=== PATIENT | male | born 2000 | race Caucasian/White ===

== ENCOUNTER 2022-10-29 05:16 | Emergency (ER) | payer OTHER ==
[2022-10-29 05:35] VITALS: TEMP 98
[2022-10-29 05:50] LABS: Basophils % (A) 0 %; Eosinophils % (A) 0 %; HCT 47.6 % (39.0-53.0); HGB 16.9 gm/dL (13.0-17.5); Lymphocytes # (A) 2.2 k/uL (1.0-4.8); Lymphocytes % (A) 18 %; MCH 29.4 pg (25.0-35.0); MCHC 35.4 g/dL (31.0-37.0); MCV 82.9 fL (80.0-100.0); Mean Platelet Volume 7.7; Monocytes # (A) 0.4 k/uL (0-1.0); Monocytes % (A) 4 %; Neutrophils # (A) 9.3 k/uL (1.3-7.7); Neutrophils % (A) 77 %; Platelet Count 356 k/uL (150-450); RBC 5.74 m/uL (4.30-5.90); WBC 12.1 k/uL (3.8-10.6)
[2022-10-29] MEDS: SODIUM CHLORIDE 0.9% 1,000 ML IV ONE (06:01)
[2022-10-29] MEDS: PANTOPRAZOLE 40 MG/10 ML VIAL IVP STA (06:01)
[2022-10-29] MEDS: diphenhydrAMINE 50 MG/ML 1 ML VIAL IVP STA (06:01)
[2022-10-29] MEDS: ONDANSETRON 4 MG/2 ML VIAL IVP STA ×2 (06:01→10:46)
[2022-10-29 06:03] LABS: INR 1.1 (<1.2); Partial Thromboplastin Time 23.6 sec (22.0-30.0); Prothrombin Time 11.4 sec (9.0-12.0)
[2022-10-29 06:06] LABS: ALT 33 U/L (4-49); AST 32 U/L (17-59); African American GFR (CKD) >90 (>60 ml/min/1.73 sqM); Albumin 5.1 g/dL (3.5-5.0); Alkaline Phosphatase 107 U/L (38-126); Anion Gap 13 mmol/L; Blood Urea Nitrogen 19 mg/dL (9-20); Calcium 10.8 mg/dL (8.4-10.2); Carbon Dioxide 30 mmol/L (22-30); Chloride 99 mmol/L (98-107); Glucose 129 mg/dL (74-99); Magnesium 2.3 mg/dL (1.6-2.3); Non-African American GFR(CKD) >90 (>60 ml/min/1.73 sqM); Potassium 3.7 mmol/L (3.5-5.1); Sodium 142 mmol/L (137-145); Total Protein 9.5 g/dL (6.3-8.2)
--- NOTE | 2022-10-29 06:16 | ED ---
Nausea/Vomiting/Diarrhea HPI - General Chief complaint: Nausea/Vomiting/Diarrhea Stated complaint: vomiting Time Seen by Provider: 10/29/22 05:21 Source: patient, EMS, RN notes reviewed Mode of arrival: EMS Limitations: no limitations - History of Present Illness Initial comments: This is a 22-year-old male who presents to the emergency department for ab dominal pain, nausea, and vomiting. Patient states that earlier today, he was vomiting bile. He then started to vomit progressively large amounts of blood. Denies any history of similar symptoms in the past. He reports associated epigastric pain and constipation, with his last bowel movement being 4 days ago. Denies any blood in the stool. He is at [facility] for fentanyl use and has been there for 4 days at this point. Denies any fevers, chills, sore throat, cough, dyspnea, chest pain, palpitations, diarrhea, back pain, or headaches. MD complaint: nausea, vomiting Description of Vomiting: bilious, bloody Associated Abdominal Pain: Yes Location: epigastric - Related Data Home Medications Medication Instructions Recorded Confirmed Acetaminophen Tab [Tylenol] 650 mg PO QID PRN 10/29/22 10/29/22 Calcium Carb/Mag Ox/Zinc Sulf 1 tab PO TID 10/29/22 10/29/22 [Hrm-Wrp-Tnrm 334-134-5 mg Tab] Chlorpheniramine Maleate 4 mg PO Q4H PRN MDD 4 doses 10/29/22 10/29/22 [Chlor-Trimeton] Escitalopram [Lexapro] 10 mg PO DAILY@0600 10/29/22 10/29/22 Hyoscyamine Sulfate [Levsin] 0.125 mg PO QID PRN 10/29/22 10/29/22 Ibuprofen [Motrin Ib] 600 mg PO Q6H PRN 10/29/22 10/29/22 Loperamide HCl [Imodium A-D] 2 - 4 mg PO QID PRN 10/29/22 10/29/22 Mirtazapine [Remeron] 15 mg PO HS@2130 10/29/22 10/29/22 Multivitamins, Thera [Multivitamin 1 tab PO DAILY 10/29/22 10/29/22 (formulary)] Mylanta 30 ml PO Q4H PRN 10/29/22 10/29/22 Thiamine [Vitamin B-1] 100 mg PO DAILY 10/29/22 10/29/22 buprenorphine HCL [Subutex] See Taper SUBLINGUAL DAILY 10/29/22 10/29/22 cloNIDine HCL [Catapres] 0.1 mg PO DIRECTED PRN 10/29/22 10/29/22 Allergies Allergy/AdvReac Type Severity Reaction Status Date / Time No Known Allergies Allergy Verified 10/29/22 08:24 Review of Systems ROS Statement: Those systems with pertinent positive or pertinent negative responses have been documented in the HPI. ROS Other: All systems not noted in ROS Statement are negative. General Exam Limitations: no limitations General appearance: alert, in no apparent distress Head exam: Present: atraumatic, normocephalic, normal inspection Respiratory exam: Present: normal lung sounds bilaterally. Absent: respiratory distress, wheezes, rales, rhonchi, stridor Cardiovascular Exam: Present: regular rate, normal rhythm, normal heart sounds. Absent: systolic murmur, diastolic murmur, rubs, gallop, clicks GI/Abdominal exam: Present: soft, tenderness (epigastric), normal bowel sounds. Absent: distended Neurological exam: Present: alert, oriented X3, CN II-XII intact Psychiatric exam: Present: normal affect, normal mood Skin exam: Present: warm, dry, intact, normal color. Absent: rash Course Vital Signs 10/29/22 10/29/22 10/29/22 05:32 07:00 08:44 Temperature 98 F 98 F Pulse Rate 87 84 86 Respiratory 16 16 16 Rate Blood Pressure 131/85 164/80 145/68 O2 Sat by Pulse 97 98 98 Oximetry 10/29/22 10/29/22 10/29/22 10:46 12:06 12:51 Temperature Pulse Rate 110 H 89 97 Respiratory 20 20 18 Rate Blood Pressure 100/64 100/60 100/67 O2 Sat by Pulse 99 98 98 Oximetry Medical Decision Making - Medical Decision Making This is a 22-year-old male who presents to the emergency department for abdominal pain, nausea, and vomiting. Was pt. sent in by a medical professional or institution? @ -[facility] Did you speak to anyone other than the patient for history? @ -No Did you review nursing and triage notes? @ -Yes, and I agree, it is accurate with regards to the patient's symptoms. Were old charts reviewed? @ -No Differential Diagnosis? @ -Differential Abdominal Pain Men: Appendicitis, cholecystitis, diverticulosis, ischemic bowel, pancreatitis, hepatitis, UTI, gastroenteritis, AAA, incarcerated hernia, bowel obstruction, constipation, inflammatory bowel, hepatitis, peptic ulcer disease, splenic infarction, perforated viscus, testicular torsion, this is not meant to be an all-inclusive list. CT interpreted by me (1pt min.)? @ -Computed tomography scan of the chest, abdomen, and pelvis obtained following the GI bleed protocol. My interpretation identifies no evidence of bowel wall thickening. What testing was considered but not performed? (CT, X-rays, U/S, labs)? Why? @ -None What meds were considered but not given? Why? @ -None Did you discuss the management of the patient with other professionals? @ -I initially spoke with [facility]. Their GI department declined the transfer because the patient had a stable hemoglobin level. I then spoke with Dr. Grayson, general surgery, who advised transfer to a facility with GI available. Dr. Ching Hays at [facility] who accepts the patient for ER to ER transfer. Did you reconcile home meds? @ -No Was smoking cessation discussed for >3mins.? @ -No Was critical care preformed (if so, how long)? @ -No Were there social determinants of health that impacted care today? How? (Home lessness, low income, unemployed, alcoholism, drug addiction, transportation, low edu. Level, literacy, decrease access to med. care, [facility], rehab)? @ -Fentanyl abuse, increasing his risk for serious health problems. Was there de-escalation of care discussed even if they declined? (Discuss DNR or withdrawal of care, Hospice)? @ -No What co-morbidities impacted this encounter? (DM, HTN, Smoking, COPD, CAD, Cancer, CVA, Hep., AIDS, mental health diagnosis, sleep apnea, morbid obesity)? @ -Fentanyl abuse Was patient admitted / discharged? @ -Transferred. Lab work obtained revealing leukocytosis and no other actionable findings. Initial hemoglobin 16.9. Patient had a bag containing hematemesis in the examination room. This appeared bright red in nature and c ontained approximately one unit of blood. Patient noted vomiting a significant amount of blood before this as well. He was given IV fluids, Protonix, Zofran, and Benadryl. He did initially have improvement in symptoms following medication administration and no longer threw up. However shortly afterwards, he did start to have an increase in nausea again and was subsequently given a dose of Reglan. His nausea again improved, but returned again within an hour. We did repeat his CBC and his hemoglobin went from 16.9 to 14.9. He did however get a liter of fluids and a component of this was likely related to dilution. Computed tomography scan of the chest, abdomen, and pelvis obtained following GI bleed protocol. No acute irregularities were noted. Given that we do not have GI available and because his nausea has been very difficult to control, there is concern about discharging him home and having the hematemesis return and worsening the possible [place] tear. I initially spoke with [facility], who's GI department declined the transfer because the patient had a stable hemoglobin level. I then spoke with Dr. Grayson, general surgery, who advised transfer to a facility with GI available. Patient accepted as an ED to ED transfer at [facility]. Dr. Ching Hays is the accepting ED physician. Undiagnosed new problem with uncertain prognosis? @ -None Drug Therapy requiring intensive monitoring for toxicity (Heparin, Nitro, Insulin, Cardizem)? @ -None Were any procedures done? @ -None Diagnosis/symptom? @ -Hematemesis Acute, or Chronic, or Acute on Chronic? @ -Acute Uncomplicated (without systemic symptoms) or Complicated (systemic symptoms)? @ -Complicated Side effects of treatment? @ -None Exacerbation, Progression, or Severe Exacerbation] @ -Not applicable Poses a threat to life or bodily function? @ -Yes This case was discussed in detail with the attending ED physician, Dr. Pizarro. Presentation, findings, and treatment plan discussed in detail as well. - Lab Data Result diagrams: 10/29/22 08:44 10/29/22 05:40 Lab Results 10/29/22 10/29/22 10/29/22 Range/Units 05:40 05:40 05:40 WBC 12.1 H (3.8-10.6) k/uL RBC 5.74 (4.30-5.90) m/uL Hgb 16.9 (13.0-17.5) gm/dL Hct 47.6 (39.0-53.0) % MCV 82.9 (80.0-100.0) fL MCH 29.4 (25.0-35.0) pg MCHC 35.4 (31.0-37.0) g/dL RDW 13.0 (11.5-15.5) % Plt Count 356 (150-450) k/uL MPV 7.7 Neutrophils % 77 % Lymphocytes % 18 % Monocytes % 4 % Eosinophils % 0 % Basophils % 0 % Neutrophils # 9.3 H (1.3-7.7) k/uL Lymphocytes # 2.2 (1.0-4.8) k/uL Monocytes # 0.4 (0-1.0) k/uL Eosinophils # 0.0 (0-0.7) k/uL Basophils # 0.0 (0-0.2) k/uL PT 11.4 (9.0-12.0) sec INR 1.1 (<1.2) APTT 23.6 (22.0-30.0) sec Sodium 142 (137-145) mmol/L Potassium 3.7 (3.5-5.1) mmol/L Chloride 99 (98-107) mmol/L Carbon Dioxide 30 (22-30) mmol/L Anion Gap 13 mmol/L BUN 19 (9-20) mg/dL Creatinine 1.11 (0.66-1.25) mg/dL Est GFR (CKD-EPI)AfAm >90 (>60 ml/min/1.73 sqM) Est GFR (CKD-EPI)NonAf >90 (>60 ml/min/1.73 sqM) Glucose 129 H (74-99) mg/dL Lactic Ac Sepsis Rflx Plasma Lactic Acid Zhang (0.7-2.0) mmol/L Calcium 10.8 H (8.4-10.2) mg/dL Magnesium 2.3 (1.6-2.3) mg/dL Total Bilirubin 1.0 (0.2-1.3) mg/dL AST 32 (17-59) U/L ALT 33 (4-49) U/L Alkaline Phosphatase 107 (38-126) U/L Total Protein 9.5 H (6.3-8.2) g/dL Albumin 5.1 H (3.5-5.0) g/dL 10/29/22 10/29/22 10/29/22 Range/Units 05:40 07:21 08:44 WBC 11.0 H (3.8-10.6) k/uL RBC 5.10 (4.30-5.90) m/uL Hgb 14.9 (13.0-17.5) gm/dL Hct 43.0 (39.0-53.0) % MCV 84.2 (80.0-100.0) fL MCH 29.3 (25.0-35.0) pg MCHC 34.8 (31.0-37.0) g/dL RDW 12.7 (11.5-15.5) % Plt Count 289 (150-450) k/uL MPV 7.4 Neutrophils % 75 % Lymphocytes % 20 % Monocytes % 4 % Eosinophils % 1 % Basophils % 0 % Neutrophils # 8.2 H (1.3-7.7) k/uL Lymphocytes # 2.2 (1.0-4.8) k/uL Monocytes # 0.4 (0-1.0) k/uL Eosinophils # 0.1 (0-0.7) k/uL Basophils # 0.0 (0-0.2) k/uL PT (9.0-12.0) sec INR (<1.2) APTT (22.0-30.0) sec Sodium (137-145) mmol/L Potassium (3.5-5.1) mmol/L Chloride (98-107) mmol/L Carbon Dioxide (22-30) mmol/L Anion Gap mmol/L BUN (9-20) mg/dL Creatinine (0.66-1.25) mg/dL Est GFR (CKD-EPI)AfAm (>60 ml/min/1.73 sqM) Est GFR (CKD-EPI)NonAf (>60 ml/min/1.73 sqM) Glucose (74-99) mg/dL Lactic Ac Sepsis Rflx Y Plasma Lactic Acid Zhang 2.4 H* (0.7-2.0) mmol/L Calcium (8.4-10.2) mg/dL Magnesium (1.6-2.3) mg/dL Total Bilirubin (0.2-1.3) mg/dL AST (17-59) U/L ALT (4-49) U/L Alkaline Phosphatase (38-126) U/L Total Protein (6.3-8.2) g/dL Albumin (3.5-5.0) g/dL 10/29/22 Range/Units 11:50 WBC (3.8-10.6) k/uL RBC (4.30-5.90) m/uL Hgb (13.0-17.5) gm/dL Hct (39.0-53.0) % MCV (80.0-100.0) fL MCH (25.0-35.0) pg MCHC (31.0-37.0) g/dL RDW (11.5-15.5) % Plt Count (150-450) k/uL MPV Neutrophils % % Lymphocytes % % Monocytes % % Eosinophils % % Basophils % % Neutrophils # (1.3-7.7) k/uL Lymphocytes # (1.0-4.8) k/uL Monocytes # (0-1.0) k/uL Eosinophils # (0-0.7) k/uL Basophils # (0-0.2) k/uL PT (9.0-12.0) sec INR (<1.2) APTT (22.0-30.0) sec Sodium (137-145) mmol/L Potassium (3.5-5.1) mmol/L Chloride (98-107) mmol/L Carbon Dioxide (22-30) mmol/L Anion Gap mmol/L BUN (9-20) mg/dL Creatinine (0.66-1.25) mg/dL Est GFR (CKD-EPI)AfAm (>60 ml/min/1.73 sqM) Est GFR (CKD-EPI)NonAf (>60 ml/min/1.73 sqM) Glucose (74-99) mg/dL Lactic Ac Sepsis Rflx Plasma Lactic Acid Zhang 0.8 (0.7-2.0) mmol/L Calcium (8.4-10.2) mg/dL Magnesium (1.6-2.3) mg/dL Total Bilirubin (0.2-1.3) mg/dL AST (17-59) U/L ALT (4-49) U/L Alkaline Phosphatase (38-126) U/L Total Protein (6.3-8.2) g/dL Albumin (3.5-5.0) g/dL - Radiology Data Radiology results: report reviewed, image reviewed Disposition Clinical Impression: Hematemesis Disposition: OTHER INSTITUTION NOT DEFINED Condition: Fair Referrals: None,Stated [Primary Care Provider] - 1-2 days - Out of Hospital Transfer - Req. Specs Out of Hospital Transfer - Requested Specifics: Other Emergency Center ([facility]
[2022-10-29] MEDS: METOCLOPRAMIDE 5 MG/ML 2 ML VIAL IVP STA (07:34)
--- NOTE | 2022-10-29 07:46 | CT ---
EXAMINATION TYPE: CT angio thor/abd pel aorta DATE OF EXAM: 10/29/2022 COMPARISON: None HISTORY: Hematemesis CT DLP: 4453.8 mGycm, Automated exposure control for dose reduction was used. CONTRAST: Performed injected with 100 mL of Isovue 300. TECHNIQUE: Axial images were obtained at 5 mm thick sections. Reconstructed images are reviewed on [employer] computer in the coronal plane. Images were obtained from the lung apex to the pubic rami. FINDINGS: Portion of the thyroid visualized is normal. Small hiatal hernia is present. No suspicious lung nodules or focal infiltrates are present. No enlarged mediastinal or hilar adenopathy is evident. The ascending aorta diameter at the level o f the main pulmonary artery is 3.8 cm. The main pulmonary artery diameter at the bifurcation is 2.[address] sections are obtained through the upper abdomen. Abdomen is essentially unremarkable. CT ABDOMEN: Liver spleen pancreas gallbladder and adrenal glands appear unremarkable. Kidneys pre and post contrast are unremarkable. No renal stones are evident. Abdominal aorta and inferior vena cava are normal. Loops of bowel visualized are normal. Study is without oral contrast limiting bowel evaluation. No ab normal accumulation of contrast within bowel is evident. Fluid is within the stomach. CT PELVIS: The appendix is visualized is normal. No hydronephrosis is evident. Urinary bladder is nor mal. Prostate is normal IMPRESSIONS: 1. No suspicious abnormality to account for hematemesis. 2. Small hiatal hernia.
[2022-10-29 08:53] LABS: Basophils % (A) 0 %; Eosinophils # (A) 0.1 k/uL (0-0.7); Eosinophils % (A) 1 %; HGB 14.9 gm/dL (13.0-17.5); Lymphocytes # (A) 2.2 k/uL (1.0-4.8); Lymphocytes % (A) 20 %; MCH 29.3 pg (25.0-35.0); MCHC 34.8 g/dL (31.0-37.0); MCV 84.2 fL (80.0-100.0); Mean Platelet Volume 7.4; Monocytes # (A) 0.4 k/uL (0-1.0); Monocytes % (A) 4 %; Neutrophils # (A) 8.2 k/uL (1.3-7.7); Neutrophils % (A) 75 %; Platelet Count 289 k/uL (150-450); RDW 12.7 % (11.5-15.5)
[2022-10-29 12:53] VITALS: BP 100/67; PULSE 97; RESP 18
== END 2022-10-29 12:56 | disposition other institution (70) ==
LOC: EC 05:16
DX: K92.0 Hematemesis (principal); K44.9 Diaphragmatic hernia without obstruction or gangrene
CPT/HCPCS: 36415; 80053; 83605; 83735; 85025; 85610; 85730; 71275; 74174; 99284; 96374; 96375 ×3; 96376; 96361; J1200; J2765; J2405; C9113; Q9967